=== PATIENT | female | born 1955 | race Caucasian/White ===

== ENCOUNTER → 2017-12-11 | Outpatient (CLI) | payer MEDICAID | LOC: MHCPAIN 08:41 | DX: G89.29 Other chronic pain (principal); M47.817 Spondylosis without myelopathy or radiculopathy, lumbosacral region; M54.16 Radiculopathy, lumbar region; M53.3 Sacrococcygeal disorders, not elsewhere classified; M96.1 Postlaminectomy syndrome, not elsewhere classified | CPT/HCPCS: G0463 ==

== ENCOUNTER 2023-06-04 16:45 | Inpatient (IN) | payer MEDICAID ==
[~2023-06-04] VITALS: Ht 162.6 cm; Wt 44.2 kg
[2023-06-05] MEDS ORDERED: LIPITOR 40MG TA40 MG PO (10:44)
[2023-06-05] MEDS ORDERED: LIDODERM 5% PATC1 EA TP (10:45)
[2023-06-05] MEDS ORDERED: VIMPAT200 MG PO (10:45)
[2023-06-05] MEDS ORDERED: KEPPRA 500MG500 MG PO (10:46)
[2023-06-05] MEDS ORDERED: RT ALBUTER2.5 MG/0.5 IH (10:47)
[2023-06-05] MEDS ORDERED: ASPIRIN 81M81 MG/TA2 PO (10:48)
[2023-06-05] MEDS ORDERED: FOSAMAX 70MG TA70 MG PO (10:48)
[2023-06-05] MEDS ORDERED: CYMBALTA 60MG60 MG PO (10:49)
[2023-06-05] MEDS ORDERED: FLOVENT 110MCG7.9 GM IH (10:49)
[2023-06-05] MEDS ORDERED: COZAAR 50MG50 MG/TAB PO (10:50)
[2023-06-05] MEDS ORDERED: LASIX 20MG TABL20 MG PO ×2 (10:50→15:20)
[2023-06-05] MEDS ORDERED: NEURONTIN100 MG/CAP PO (10:50)
[2023-06-05] MEDS ORDERED: PRILOSEC 20MG20 MG PO (10:51)
[2023-06-05] MEDS ORDERED: SPIRIVA RE2.5 MCG/Ac IH (10:51)
[2023-06-05] MEDS ORDERED: DESYREL 100MG100 MG PO (10:52)
[2023-06-05] MEDS ORDERED: CYANOCOBAL1000 MCG/M IM (15:17)
[2023-06-05] MEDS ORDERED: COLACE LIQUI10 MG/ML PO (15:18)
[2023-06-05] MEDS ORDERED: LOVENOX 4040 MG/0.4 SQ (15:20)
[2023-06-05] MEDS ORDERED: PREVACID SOLUTA30 M2 PO (15:21)
[2023-06-05 15:23] VITALS: BP 122/66; PULSE 81; TEMP 98.2
[2023-06-05] MEDS ORDERED: ONE-A-DAY WOME0.4 MG PO (15:24)
[2023-06-05] MEDS ORDERED: SENOKOT S 50 MG1 TAB PO (15:24)
--- NOTE | 2023-06-05 16:00 | NUR ---
New pt arrived to unit from [facility] via wheelchair. Pt required CGA to stand w/ gait belt & transfer to bed. Pt is alert to person only. Frequently asking for her dog. Skin check: red, blanchable area to upper spine - looks as if previous open area that has healed. Scab noted to left weber. All other skin is intact. Orientation provided to room/unit - needs to be reviewed w/ the pt again. Pt denies any valuable items that need to be locked in safe. Pt has MCOT device to left chest w/ cell phone device reader at the bedside. Pt placed on specialty (new) bed for pressure ulcer prophylaxis. Call light in her reach. Bed alarm on.
[2023-06-05 17:16] VITALS: BP_SYST 122
[2023-06-05 17:50] VITALS: BP 130/72; PULSE 70; TEMP 99.2
[2023-06-05 19:37] VITALS: BP 122/67; PULSE 76; TEMP 98.8
[2023-06-05 19:39] VITALS: BP_SYST 122
--- NOTE | 2023-06-05 20:00 | NUR ---
PT UABLE TO COMPREHEND SUICIDE SCALE.
--- NOTE | 2023-06-05 20:00 | NUR ---
PT RESTING IN BED. VERY CONFUSED AND IMPULSIVE. TRYING REACH OVER SIDERAIL TO GET HER DOG AISHWARYA TO TAKE OUTSIDE. UNABLE TO REDIRECT. PT CLOSE TO NURSES DESK. REMAINS IN SEIZURE PRECAUTIONS. PT RELATES HAVING 10 BACK PAIN. SEE MAR FOR PAIN MEDS GIVEN. GET DESYRL AT BED TIME. GIVEN EARLY. CALL LIGHT IN REACH. BED ALRM SET.
[2023-06-06 05:22] VITALS: BP 151/77; PULSE 65; TEMP 98.3
[2023-06-06 07:00] VITALS: BP_SYST 151
--- NOTE | 2023-06-06 11:22 | NUR ---
Nurse Specialist met with patient to complete initial intake, however due to some confusion, patient was not able to answer all questions. Patient stated she lives alone in [place], [place] and that her sister, Mala (ph#[phone]) lives nearby. Patient stated she sees Dr. Ron for primary care but did not know where they were located. Patient stated she uses [facility] and that she cannot afford her medications, despite having Medicaid [employer]. Patient stated she uses a front wheeled walker for ambulation. SW asked about Advance Directives and patient didn't know if she had DPOA-HC. SW contacted patient's sister, Mala who confirmed patient lives alone in [place] and that she uses a walker for ambulation. Mala stated she is DPOA-HC and will bring in a copy tomorrow. Mala also advised patient has in home services from an agency in [place], but didn't know the name.
--- NOTE | 2023-06-06 16:05 | NUR ---
Has lack of transportation kept you from medical appts, meetings, work, or from getting things needed for daily living? NO How often do you feel lonely or isolated from those around you? NEVER Over the past 5 days, how much of the time has pain made it hard for you to sleep? RARELY/NOT AT ALL Over the past 5 days, how often have you limited your participation in therapy due to pain? OCCASIONALLY Over the past 5 days, how often have you limited your day-to-day activities because of pain? FREQUENTLY Have you had 2 or more falls in the past year or any fall with an injury? YES Did you have major surgery during the 100 days prior to admission? NO
[2023-06-06 17:21] VITALS: BP 126/78; PULSE 63; TEMP 98.2
[2023-06-06 19:00] VITALS: BP_SYST 126
--- NOTE | 2023-06-06 20:00 | NUR ---
PATIENT WAS AWAKE IN BED UPON SHIFT ASSESSMENT. SHE IS AXO X2 TO SELF AND BIRTHDATE ONLY. SHE IS PLEASANT BUT CONFUSSED TO WHERE SHE IS. SHE DENIES ANY PAIN OR SOA AT THIS TIME. LUNG SOUNDS ARE CLEAR. PATIENT REORIENTED TO TIME AND PLACE. CALL LIGHT WITHIN REACH, BEDALARM ON.
--- NOTE | 2023-06-06 20:55 | NUR ---
CALL PLACED TO HOSPITALIST-RIVER. OLGA EXPERIENCED NAUSEA AND VOMITTING. ENTIRE STOMACH CONTENTS INCLUDING PM MEDS WERE EXPELLED. VSS WERE TAKEN AND BP WAS ELEVATED 186/66. TORB WAS GIVEN FOR AND ADMINISTERED- IV HYDRALAZINE AND ZOFRAN.
--- NOTE | 2023-06-06 22:32 | NUR ---
HOSPITALIST VISITED PATIENT BEDSIDE PATIENT CONTINUES TO EXPERIENCE V/N AND MURCIA. RIVER PALPATED PATIENT'S ABDOMEN AND PATIENT RESPONDED WITH YELLING AND GAURDING AND STATED THAT "IT HURTS". VSS ARE 164/63 BP, 79 PULSE, [address] OF HEAD AND ABDOMEN ORDERED.
[2023-06-06 23:32] LABS: BASO # 0.1 K/mm3 (0.0-0.2); BASO % 1.8 % (0.0-2.0); EOS # 0.1 K/mm3 (0.0-0.7); EOS % 2.6 % (0.0-4.0); GRAN # 2.9 K/mm3 (1.4-6.5); GRAN % 58.7 % (42.2-75.2); HEMOGLOBIN 10.9 g/dl (12.5-16.0); LYMPH # 1.4 K/mm3 (1.2-3.4); LYMPH % 27.9 % (20.0-51.0); MEAN CELL VOLUME 105 fl (80.0-100.0); MEAN CORPUSCULAR HEMOGLOBIN 37 pg (27-31); MEAN CORPUSCULAR HGB CONC 36 g/dl (33.0-37.0); MEAN PLATELET VOLUME 12.4 fl (7.4-10.4); MONO # 0.4 K/mm3 (0.1-0.6); MONO % 8.8 % (1.7-9.3); PLATELET COUNT 254 K/mm3 (130-400); RED BLOOD COUNT 2.92 M/mm3 (4.10-5.30); REDCELL DISTRIBUTION WIDTH-CV 13.1 % (11.5-14.5)
[2023-06-06 23:35] LABS: HEMATOCRIT 30.5 % (37.0-47.0)
--- NOTE | 2023-06-06 23:45 | NUR ---
PATIENT RETURNED FROM CT. BED ALARM ACTIVATED CALL LIGHT WITHIN REACH.
[2023-06-06 23:53] LABS: ALANINE AMINOTRANSFERASE 29 U/L (0-55); ALBUMIN 3.7 gm/dL (3.4-4.8); ALKALINE PHOSPHATASE 109 U/L (40-150); ANION GAP 11 mmol/L (7-16); AST,SGOT 40 U/L (5-34); BILIRUBIN,TOTAL 0.3 mg/dL (0.2-1.2); BLOOD UREA NITROGEN 26 mg/dL (10-20); CARBON DIOXIDE 24 mmol/L (23-31); CHLORIDE 107 mmol/L (98-107); CREATININE, serum 0.67 mg/dL (0.57-1.11); GLUCOSE 120 mg/dL (70-99); POTASSIUM 3.6 mmol/L (3.5-4.5); SODIUM 142 mmol/L (136-145); TOTAL PROTEIN 7.2 gm/dL (6.2-8.1)
[2023-06-07] LABS: TROPONIN-I < 0.010 ng/mL (0.00-0.033)
--- NOTE | 2023-06-07 00:35 | NUR ---
mepiplex placed on bony prominence of lumbar vertebrae d/t scab.
--- NOTE | 2023-06-07 04:32 | NUR ---
RECHECK OF VSS- BP 166/59, 02 100%, 74 PULSE, TEMP 98.2. PATIENT STILL REMAINS AXO X 2. DENIES N/V AND PAIN AT THIS TIME.
[2023-06-07 05:21] VITALS: BP 165/64; PULSE 81; TEMP 98.1
--- NOTE | 2023-06-07 06:03 | NUR ---
OLGA'S BP REMAINS IN 160'S SYSTOLIC. ALL OTHER VSS ARE WNL. SHE NO LONGER COMPLAINS OF MURCIA AND N/V. CT HEAD NORMAL-SEE NOTES. OLGA REMAINS AXO X2 AND WAS REORIENTED TO PLACE AND SITUATION THROUOUGHT THE NIGHT. BED ALARM ON
[2023-06-07 07:02] VITALS: BP_SYST 165
--- NOTE | 2023-06-07 07:03 | NUR ---
Shift report received from night RN. Pt had vomiting episode, MURCIA, & elevated BP overnight. Pt currently awake & lying in left side position in bed. She is alert to person. Denies current abd. pain or nausea. Reports having pain "all over". Will continue to monitor.
--- NOTE | 2023-06-07 08:58 | NUR ---
Pt up in recliner to work w/ OT/PT.
--- NOTE | 2023-06-07 10:25 | NUR ---
Pt off unit for Group Therapy.
[2023-06-07 13:47] VITALS: BP 162/78
--- NOTE | 2023-06-07 13:48 | NUR ---
Pt lying supine in bed. Sister here to bring belongings. Scheduled gabapentin given. Pt denies other needs at this time. Call light in reach. Bed alarm on.
--- NOTE | 2023-06-07 15:22 | NUR ---
Pt resting supine in bed. Rates pain "all over" at 10/10. Tylenol given per PRN order.
--- NOTE | 2023-06-07 16:43 | NUR ---
Pt up to ambulate in hallway w/ RN. Pt wanting to walk her dog, Janessa, & smoke a cigarette. Pt re-oriented to time/place. Pt unable to recall how long she has been on IPR unit. Pt reminded that hospital has no smoking policy. Pt back in bed at her request. Other needs denied. Call light in her reach. Bed alarm is on.
[2023-06-07 16:57] VITALS: BP 158/78; BP 175/77; PULSE 65; TEMP 98
--- NOTE | 2023-06-07 18:30 | NUR ---
Pt laying supine in bed moaning. Pt reporting that she hurts all over & rates pain level at 10/10. Oxycodone given per PRN order. Pt also shouting "evita!". When pt asked who she is looking for pt stated "you don't hear that mute?" Pt reminded that she is on IPR unit at [address]. Pt settled into bed. Denies other needs. Call light in her reach. Bed alarm is on.
[2023-06-07 19:00] VITALS: BP_SYST 158
--- NOTE | 2023-06-07 20:00 | NUR ---
UPON SHIFT ASSESSMENT, OLGA WAS SLEEPING SOUNDLY. SHE STILL REAMAINS AXO X1 BUT C/O OF NO MURCIA, N/V AND SOA. VSS ARE WNL WITH BP SLIGHTLY ELEVATED AT 156 SYSTOLIC. BED ALARM ON.
--- NOTE | 2023-06-08 01:45 | NUR ---
OLGA HAD AN EPISODE OF INCONTINENCE-URINE. LINEN CHANGED.
[2023-06-08 05:28] VITALS: BP 132/73; PULSE 88; TEMP 99.5
--- NOTE | 2023-06-08 05:41 | NUR ---
OLGA HAD 3 OCCURENCES OF URINE INCONTINENCE THROUGHOUT THE NIGHT. SHE SLEPT THROUGH MOST OF THE NIGHT AND DENIES ANY PAIN. SHE STILL REMAINS AXO X1. VSS WNL. CALL LIGHT WITHIN REACH. BED ALARM ON.
[2023-06-08 07:17] VITALS: BP_SYST 132
--- NOTE | 2023-06-08 07:17 | NUR ---
Shift report received from night RN. No events reported overnight. Pt sleeping in right side lying position w/ even & unlabored resps. Call light in reach. Bed alarm on.
--- NOTE | 2023-06-08 07:55 | NUR ---
Pt sitting up in bed eating breakfast independently. Pt reports sleeping ok overnight. Reports pain "all over" at 9/10. Tylenol given per PRN order. Other needs denied. Call light in reach. Bed alarm on.
--- NOTE | 2023-06-08 10:04 | NUR ---
Pt sleeping in left side lying position in bed. Resps are even & unlabored. Call light in reach. Bed alarm is on.
--- NOTE | 2023-06-08 11:59 | NUR ---
Set up help provided for lunch. Pt feeding herself. Supervision provided. Pt reporting pain "all over" at 04/01. Oxycodone given per PRN order.
--- NOTE | 2023-06-08 14:57 | NUR ---
Pt sleeping in R side lying position in bed. Resps are even & unlabored. Call light in her reach. Bed alarm is on.
--- NOTE | 2023-06-08 15:58 | NUR ---
Pt supervised as she stood from bed to rolling walker & ambulated to the bathroom where she had a continent void. Pt sitting up in the recliner w/ BLE elevated on footrest. Pt reoriented to location ([facility] unit, [place], [place]) after pt asking where she is three times. Pt unable to recall the events that led to her hospitalization. Pt denies any needs at this time. Call light in her reach. Chair alarm is on.
[2023-06-08 17:08] VITALS: BP 158/73; PULSE 70; TEMP 97.7
--- NOTE | 2023-06-08 18:11 | NUR ---
Pt sitting up in the recliner watching tv. Pt stated "I'm alright" when asked if she was having any pain & denied the need for pain medication at this time. Pt denies other needs. Call light in her reach. Chair alarm is on.
[2023-06-08 18:59] VITALS: BP_SYST 158
--- NOTE | 2023-06-08 19:00 | NUR ---
RECEIVED CHANGE OF SHIFT REPORT FROM DAY SHIFT RN.
--- NOTE | 2023-06-08 20:12 | NUR ---
UP IN CHAIR DURING REPORT. DENIED ANY NEEDS AT TIME OF REPORT. CONTINUES TO BE UP IN CHAIR AT THIS TIME. EXIT ALARM ON, CALL LIGHT IN REACH.
--- NOTE | 2023-06-08 20:45 | NUR ---
DENIES ANY NEEDS OR CONCERNS AT THIS TIME. TO BED FROM CHAIR, GAIT STEADY BUT WEAK. PATIENT COOPERATIVE. EXIT ALARM ON WHEN IN BED, WITH CALL LIGHT IN REACH.
--- NOTE | 2023-06-09 03:07 | NUR ---
Patient resting with eyes closed, breathing nonlabored and even. Does not wake during nursing rounds. Exit alarm on, call light in reach.
[2023-06-09 06:08] VITALS: BP 168/71; PULSE 70; TEMP 98.2
[2023-06-09 07:00] VITALS: BP_SYST 168
--- NOTE | 2023-06-09 07:36 | NUR ---
Change of shift report given to day shift RNTiffani.
--- NOTE | 2023-06-09 08:00 | NUR ---
Pt alert to self, responses are not appropriate to questions asked.Pt re oriented to time and place, also written on the board. VSS, Shift assessment complete. Denies pain at this time, medicated per emar. Call light within reach, bed alarm set and is able to turn self side to side in bed. Has had int. incontinence. Denies further needs at this time.
--- NOTE | 2023-06-09 08:58 | NUR ---
cement and concrete plant worker contacted [facility] to determine if patient has home health services through them as patient is unable to remember the name. [facility] confirmed patient receives home health services through them. [facility] was able to provide patient's PCP information, whom is Dr. Morgan Mac through the [facility]. PCP P# [phone] F# [phone]. [facility] Fax is [phone]. SW faxed clinical updates to [facility].
--- NOTE | 2023-06-09 09:53 | NUR ---
RECIEVED REPORT FROM PERSONALIZATION SPECIALIST RN.
--- NOTE | 2023-06-09 12:31 | NUR ---
Admission QIM scores were reviewed by the team. Code of 4 chosen for toileting hygiene was determined by team discussion to be the most usual performance for this patient during the discharge assessment period. Code of 4 chosen for toilet transfers was determined by team discussion to be the most usual performance for this patient during the discharge assessment period. Code of 4 chosen for rolling left to right was determined by team discussion to be the most usual performance before interventions for this patient during the assessment period. Code of 4 chosen for sit to lying was determined by team discussion to be the most usual performance before interventions for this patient during the assessment period. Code of 3 chosen for lying to sitting side of bed was determined by team discussion to be the most usual performance before interventions for this patient during the assessment period. Code of 4 chosen for sit to stand was determined by team discussion to be the most usual performance for this patient during the discharge assessment period. Code of 4 chosen for chair/bed to chair transfer was determined by team discussion to be the most usual performance before interventions for this patient during the assessment period. Code of 4 chosen for walking 10 feet was determined by team discussion to be the most usual performance for this patient during the discharge assessment period.--Elaine Oritz,
[2023-06-09 17:13] VITALS: BP 145/77; PULSE 81; TEMP 98.5
[2023-06-09 19:10] VITALS: BP_SYST 145
--- NOTE | 2023-06-09 19:10 | NUR ---
RECEIVED CHANGE OF SHIFT REPORT FROM DAY SHIFT NURSE. PATIENT SLEEPING, DOES NOT WAKE DURING REPORT. BREATHING OBSERVED EVEN AND NONLABORED. BED EXIT ALARM ON, CALL LIGHT IN REACH.
[2023-06-10] VITALS (7 sets, daily range): BP systolic 105–162; BP diastolic 52–79; PULSE 64–93; TEMP 97.9–98.6
--- NOTE | 2023-06-10 02:39 | NUR ---
PATIENT RESTING IN BED, CURRENTLY HAS EYES CLOSED BUT HAS BEEN WAKING FOR SHORT PERIODS OF TIME ASKING WHERE SHE IS AT AND WHY SHE IS HERE. BREATHING NONLABORED AND EVEN. EXIT ALARM ON, CALL LIGHT IN REACH.
--- NOTE | 2023-06-10 07:06 | NUR ---
RECIEVED REPORT FROM BRISSA MARIE.
--- NOTE | 2023-06-10 07:07 | NUR ---
Change of shift report given to day shift nurseTiffani.
--- NOTE | 2023-06-10 10:52 | NUR ---
Pt alert and oriented to self. Has to be reoriented often. Not much of an appetite this morning but does manage the ensure supplement ok. VSS, shift assessment complete, medicated per emar, denies painat this time. Transfers with one person assist and FWW.Does turn independantly. Family called to check on her, they live a long distance away. Has intermittent incontinence. Call light within reach bed alarm set.
--- NOTE | 2023-06-10 15:28 | NUR ---
garbage pick up worker faxed clinical updates to [facility].
--- NOTE | 2023-06-10 19:00 | NUR ---
RECEIVED CHANGE OF SHIFT REPORT FROM DAY SHIFT NURSE. PATIENT IN BED, EXIT ALARM ON, CALL LIGHT IN REACH.
--- NOTE | 2023-06-10 19:20 | NUR ---
PATIENT C/O HEADACHE, VS CHECKED OBSERVED SBP >160, SEE MAR FOR PRN MED FOR ELEVATED SBP.
--- NOTE | 2023-06-10 22:20 | NUR ---
Patient awake, wanting to have staff lay in bed with her, also asking for "Judy" "someone I've been with". Speech is clear but patient oriented only to self. At c/o headache, see MAR for pain meds given earlier. Observed patient less restless with staff in room and observed breathing even and nonlabored, resting with eyes closed. Exit alarm on, call light in reach while in bed.
--- NOTE | 2023-06-11 05:21 | NUR ---
PATIENT UP TO BATHROOM, OBSERVED NO RESTLESS AWAKE BEHAVIOR THIS SHIFT ONCE PATIENT WAS RESTING WITH HER EYES CLOSED AND OBSERVED BREATHING EVEN AND NONLABORED. PATIENT DENIES C/O HEADACHE PAIN BEFORE. NO INCONTINENCE OF URINE OR STOOL OBSERVED AT THIS TIME.
[2023-06-11 05:27] VITALS: BP 147/65; PULSE 70; TEMP 98.9
[2023-06-11 07:00] VITALS: BP_SYST 147
--- NOTE | 2023-06-11 07:21 | NUR ---
RECIEVED REPORT FROM BRISSA MARIE.
--- NOTE | 2023-06-11 07:35 | NUR ---
Change of shift report given to day shift nurse. Patient resting in bed, exit alarm on, call light in reach.
--- NOTE | 2023-06-11 12:57 | NUR ---
Initial visit; Patient thanked Quality Assurance Calibrator thanked for stopping by and for wishing her a Happy Holiday and God's blessings.
--- NOTE | 2023-06-11 14:07 | NUR ---
general distillery worker faxed clinical updates to [facility]. Discharge Plan: HOme with [facility]
--- NOTE | 2023-06-11 16:37 | NUR ---
die out worker met with the team to discuss patient's progress and discharge planning. Patient has made a little progress but may need fci care services after rehab. The IPR team would like to continue to work with patient and re-evaluate next week if LTC is needed. Sw met with patient to discuss IPR team meeting notes and provided a copy of the notes to the patient. Patient would like to go home as soon as possible. SW explained they would re-evaluate her next week to see if she is ready to return home at that time. Patient requested SW contact her sister. SW contacted patient's sister, Mala. Mala expressed she believes based on what she saw from Vilma's progress during her last visit, she believes she may benefit from LTC after rehab. CHRISTIANO explained the team would like to continue to evaluate her but they would also like to have a family meeting to discuss concerns. CHRISTIANO scheduled a family meeting on 06/17/23 at 1 pm. CHRISTIANO provided this date to Elaien IPR director.
[2023-06-11 17:30] VITALS: BP 109/52; PULSE 74; TEMP 97.8
--- NOTE | 2023-06-11 18:18 | NUR ---
Pt alert and oriented X1, constant re orienting to time and place. She will yell from her room for "evita" or others that staff dont recognize. She asks about her pets and wants to know where they are. When reoriented about why she is here its almost like were telling her for the first time. Shift assessment complete,see documentation. VSS. Medicated per emar. Denies need for anything further. Call light within reach, bed alarm set.
[2023-06-12 05:36] VITALS: BP 164/77; PULSE 73; TEMP 98.7
[2023-06-12 07:11] VITALS: BP 137/55
[2023-06-12 07:16] VITALS: BP_SYST 137
--- NOTE | 2023-06-12 07:16 | NUR ---
Shift report received from night RN. Pt sleeping supine in bed w/ even & unlabored resps. Call light in reach. Bed alarm on.
--- NOTE | 2023-06-12 10:18 | NUR ---
Pt reporting RUQ abd pain w/ guarding. Zofran was given approx 2.5 hrs ago. Discussed w/ Dr. Colin. Magic Mouthwash given. Labs ordered. Pt off unit for Group Therapy.
--- NOTE | 2023-06-12 12:01 | NUR ---
Pt back in her room after working w/ PT. Pt sitting up in the recliner to eat lunch. Pt reporting continued abd pain w/o nausea. UA obtained & sent to the lab. Other labs are pending lab draw. Pt given low dose oxycodone per PRN order. Other needs denied. Call light in her reach. Chair alarm is on.
[2023-06-12 12:08] LABS: COLLECTION METHOD CLEAN CATCH
[2023-06-12 12:13] LABS: PH 5.5 (5.0-8.5); URINE APPEARANCE Clear (CLEAR/HAZY); URINE COLOR Yellow (YELLOW); URINE GLUCOSE Negative (NEGATIVE); URINE KETONE Negative (NEGATIVE); URINE PROTEIN(semi-quant) Negative (NEGATIVE); URINE UROBILINOGEN 0.2 E.U/dL (0.2-1.0)
[2023-06-12 12:14] LABS: URINE BLOOD Negative (NEGATIVE); URINE NITRATE Negative (NEGATIVE)
[2023-06-12 12:21] LABS: URINE RBC None Seen /hpf (0-2)
[2023-06-12 12:28] LABS: BASO # 0.1 K/mm3 (0.0-0.2); BASO % 1.3 % (0.0-2.0); EOS # 0.1 K/mm3 (0.0-0.7); GRAN # 3.6 K/mm3 (1.4-6.5); GRAN % 59.7 % (42.2-75.2); HEMOGLOBIN 12.2 g/dl (12.5-16.0); LYMPH # 1.7 K/mm3 (1.2-3.4); MEAN CELL VOLUME 104 fl (80.0-100.0); MEAN CORPUSCULAR HEMOGLOBIN 37 pg (27-31); MEAN CORPUSCULAR HGB CONC 35 g/dl (33.0-37.0); MEAN PLATELET VOLUME 12.2 fl (7.4-10.4); MONO # 0.6 K/mm3 (0.1-0.6); MONO % 9.8 % (1.7-9.3); PLATELET COUNT 242 K/mm3 (130-400); RED BLOOD COUNT 3.32 M/mm3 (4.10-5.30); REDCELL DISTRIBUTION WIDTH-CV 12.2 % (11.5-14.5)
[2023-06-12 12:29] LABS: HEMATOCRIT 34.6 % (37.0-47.0)
[2023-06-12 12:39] LABS: ALBUMIN 4.3 gm/dL (3.4-4.8); BILIRUBIN,TOTAL 0.4 mg/dL (0.2-1.2); CALCIUM 10.1 mg/dL (8.4-10.2); CREATININE, serum 0.77 mg/dL (0.57-1.11); POTASSIUM 3.9 mmol/L (3.5-4.5); TOTAL PROTEIN 7.6 gm/dL (6.2-8.1)
--- NOTE | 2023-06-12 12:48 | NUR ---
Pt assisted to bed by PT. Denies any other needs at this time. Call light in her reach. Bed alarm is on.
--- NOTE | 2023-06-12 13:55 | NUR ---
Pt sleeping supine in bed w/ even & unlabored resps. Pt aroused easily from sleep. Scheduled pain med given. Pt denies other needs. Call light in reach. Bed alarm on.
--- NOTE | 2023-06-12 15:20 | NUR ---
Pt awake after taking nap. Pt asking where she is - discussed current location w/ pt. Pt reporting pain "all over" at 04/01. Tylenol given per PRN order. Too early for Oxycodone. Pt denies other needs at this time. Call light in her reach. Bed alarm on.
[2023-06-12 16:26] VITALS: BP 103/55; PULSE 64; TEMP 98.1
--- NOTE | 2023-06-12 16:50 | NUR ---
Pt resting supine in bed reporting pain "all over" at 10/10. Oxycodone given per PRN order.
[2023-06-12 18:47] VITALS: BP_SYST 103
--- NOTE | 2023-06-12 20:00 | NUR ---
PT SLEEPING. NO DISTRESS.
--- NOTE | 2023-06-12 21:00 | NUR ---
PT AWAKE. BED ALARM SOUNDING. PT TRYING TO GET OUT OF BED. ASSISTED TO BATHROOM. CHANGED BRIEF. PT CONFUSED TO PERSON PLACE AND TIME. KEEPS ASKING ABOUT HER ANIMALS. BACK TO BED. HS MEDS CRUSHED TAKEN WITH APPLESAUCE. CALL LIGHTIN REACH. BED ALARM SET.
[2023-06-13 05:42] VITALS: BP 116/64; PULSE 70; TEMP 98.1
[2023-06-13 07:33] VITALS: BP_SYST 116
--- NOTE | 2023-06-13 07:34 | NUR ---
Shift report received from night RN. No events reported overnight. Pt sitting up in bed to eat breakfast. Call light in reach. Bed alarm on.
--- NOTE | 2023-06-13 07:55 | NUR ---
Patient complains of nausea and stomach pain, prn proveded.
--- NOTE | 2023-06-13 08:42 | NUR ---
Pt sitting up in bed eating breakfast independently. Pt reporting pain "all over" at 10/10. Oxycodone given per PRN order. Pt reports no improvement w/ abd pain after taking Zofran & Magic Mouthwash approx 1 hr ago. No nausea. Will continue to monitor. Pt has her call light in reach. Bed alarm on.
--- NOTE | 2023-06-13 09:25 | NUR ---
Pt off unit w/ PT.
--- NOTE | 2023-06-13 10:25 | NUR ---
Pt sitting in her recliner after working w/ PT. Pt reporting pain level at 10/10 "all over". Too soon for oxycodone. Tylenol given per PRN order.
--- NOTE | 2023-06-13 14:47 | NUR ---
Pt sitting up in bed watching tv. Pt asking for her dog "Violet". Informed pt that her dog is not here at the hospital w/ her. OT reporting urinary frequency during their session. Dr. Coiln notified. Pt reporting pain at 04/01. Too soon for oxycodone. Tylenol given per PRN order.
[2023-06-13 16:55] LABS: COLLECTION METHOD CATHETER
[2023-06-13 17:02] VITALS: BP 123/53; PULSE 61; TEMP 97.7
--- NOTE | 2023-06-13 17:10 | NUR ---
hollow handle bench worker met with patient to check in prior to the weekend. Patient stated she was doing well but ready to go home. SW expressed the team feels she needs to continue to make progress before being able to safely return home and her sister feels the same. SW explained she had called her sister as she asked her to do on Friday. Patient appeared confused and stated that she had not met the social media community manager. SW expressed they had been working together this week and she would follow up with her next week. Patient stated okay.
[2023-06-13 17:24] LABS: PH 5.5 (5.0-8.5); URINE APPEARANCE Cloudy (CLEAR/HAZY); URINE BLOOD Negative (NEGATIVE); URINE COLOR Yellow (YELLOW); URINE GLUCOSE Negative (NEGATIVE); URINE KETONE Negative (NEGATIVE); URINE NITRATE Negative (NEGATIVE); URINE PROTEIN(semi-quant) Negative (NEGATIVE); URINE UROBILINOGEN 0.2 E.U/dL (0.2-1.0)
[2023-06-13 17:25] LABS: SQUAMOUS EPITHELIAL >50 /hpf (0-10); URINE BACTERIA Moderate /hpf (NONE SEEN); URINE RBC 0-2 /hpf (0-2)
--- NOTE | 2023-06-13 18:12 | NUR ---
Pt up to recliner for dinner then to bed at her request. Pt moaning & reporting pain "all over" at 04/01. Oxycodone given per PRN order. Call light in her reach. Bed alarm on.
[2023-06-13 18:58] VITALS: BP_SYST 123
--- NOTE | 2023-06-13 20:30 | NUR ---
PT RESTING IN BED. SEIZURE PRECAUTIONS STILL IN PLACE. NO SEIZURE ACTIVITY SINCE ADMISSION. PT REMAINS VERY CONFUSED AND IMPULSIVE. CONTINUALLY C/O BACK PAIN. DENIES ABD PAIN OR NAUSEA. CALL LIGHT IN REACH. BED ALARM SET.
[2023-06-14 05:57] VITALS: BP 130/78; PULSE 76; TEMP 98.5
[2023-06-14 07:18] VITALS: BP_SYST 130
--- NOTE | 2023-06-14 09:17 | NUR ---
Patient alert to self only this morning, required re-orientation to situation/location/and day. Complains of pain to rib, new lidocaine patch applied. Redness noted to bottom, area blanching. Patient assisted in re-positioning. Tolerating food and fluids well. Medications administered with applesauce and water. Patient currently in bed with call light in reach and fall precautions in place.
--- NOTE | 2023-06-14 11:12 | NUR ---
Patient returned from group therapy complaining of pain. PRN Roxicodone administered with apple sauce. Patient still requiring re-orientation to situation and place. Directly after swallowing pain pill, patient asked for one and forgot she just took it. Patient resting in bed with call light in reach and fall precautions in place.
--- NOTE | 2023-06-14 14:55 | NUR ---
Patient rested for a while comfortably, after lunch patient began groaning and yelling for help. Complains of rib pain, PRN Tylenol administered and patient repositioned. Patient tolerating transfers well. Still requiring re-orientation to place and situation often. Patient currently in bed with call light in reach and bed alarm on. No groaning or yelling noted at this time.
--- NOTE | 2023-06-14 17:24 | NUR ---
Patient had increased restlessness due to wanting to smoke a cigarette. Patient kept trying to get out of bed so that she could walk outside and smoke. Orders obtained for nicotine patch and administered to right upper arm. Patient continues to require re-orientation to location, time, and situation. Patient seems to think she is in senior living, forgets that she has been here for a few days and thought that her sister brought her here today for the first time. PRN Oxycodone administered due to increase in rib pain again. Patient continues to ambulate to bathroom x1 assist with walker, no incontinence noted. Fall precautions in place, all needs met at this time.
[2023-06-14 17:43] VITALS: BP 100/53; PULSE 70; TEMP 99.4
[2023-06-14 18:30] VITALS: BP_SYST 100
--- NOTE | 2023-06-14 22:13 | NUR ---
PT AWAKE AND MOANING. BED ALARM SOUNDING. PT SIDEWAYS IN BED, TRYING TO GRAB HER GLASSES THAT FELL ON THE FLOOR. ASSISTED BACK UP TO SUPINE POSITION. PT C/O BACK PAIN. HAD PAIN MED EARLIER. PT STILL MOANING NOW SHE IS COLD. BLANKETS PLACED BACK OVER HER. GOT WARM BLANKET FOR PT. BED ALARM KEEPS SOUNDING. PT KEEPS MOVING TO RT SIDE OF THE BED SETTING OFF ALARM. MOVED PT TO CENTER OF BED. BUT KEEPS MOVING BACK- SETTING ALARM. GAVE TYLENOL FOR BACK PAIN. CALL IGHT IN REACH. BED ALARM SET ON SENSITIVE SETTING. PT IMPULSIVE AND CONFUSED.
[2023-06-14 22:15] VITALS: TEMP 98.8
[2023-06-15 05:40] VITALS: BP 130/66; PULSE 73; TEMP 98.4
[2023-06-15 06:56] VITALS: BP_SYST 130
--- NOTE | 2023-06-15 06:56 | NUR ---
Shift report received from night RN. No events reported overnight. Pt sleeping supine in bed w/ even & unlabored resps. Call light in reach. Bed alarm on.
--- NOTE | 2023-06-15 10:58 | NUR ---
Pt off unit Group Therapy.
--- NOTE | 2023-06-15 11:50 | NUR ---
Pt back in her room after Group Therapy. Pt reporting pain "all over" & rates pain at 10/10. Oxycodone given per PRN order. Pt up in recliner. Call light in reach. Chair alarm on.
--- NOTE | 2023-06-15 13:08 | NUR ---
Pt resting supine in bed. Pt reporting back pain at 10/10. Tylenol given per PRN order. Scheduled gabapentin given. Will continue to monitor.
--- NOTE | 2023-06-15 15:09 | NUR ---
Order received for K-pad. K-pad applied to pt's back to help w/ pain control.
--- NOTE | 2023-06-15 16:57 | NUR ---
Pt in left side position in bed, moaning that her back is hurting. Oxycodone given per PRN order approx 20 minutes ago. K-pad adjusted on pt's back. Will continue to monitor.
[2023-06-15 17:29] VITALS: BP 98/56; PULSE 71; TEMP 9
--- NOTE | 2023-06-15 17:38 | NUR ---
Pt sitting up in bed eating dinner w/ intermittent feeding by RN & intermittent independent eating. Pt no longer moaning in pain. Pt has her call light in reach. Bed alarm is on.
[2023-06-15 18:30] VITALS: BP_SYST 98
[2023-06-15 18:58] VITALS: TEMP 99
--- NOTE | 2023-06-15 20:30 | NUR ---
PT RESTING IN BED. PT REMAINS CONFUSED AND IMPULSIVE. PT MOANING CONTINUOUSLY. C/O BACK PAIN. ASSISTED TO BR CGA W/WALKER. VOIDED. BACK TO BED. C/O STOMACH PAINS. SEE MAR FOR OXYCODONE ANS MAGIC MOUTHWASH. KPAD INUSE TO BACK AREA. CALL LIGHT IN REACH. BED ALARM SET.
--- NOTE | 2023-06-16 04:34 | NUR ---
PT HAS SLEPT THROUGH THE NIGHT NO DISTRESS. BED ALARM REMAINS ON. CALL LIGHT IN REACH. UNEVENTFUL NIGHT.
[2023-06-16 06:04] VITALS: BP 106/61; PULSE 64; TEMP 98
[2023-06-16 07:14] VITALS: BP_SYST 106
--- NOTE | 2023-06-16 07:14 | NUR ---
Shift report received from night RN. Pt awake in bed, lying supine, moaning in pain. No events overnight.
--- NOTE | 2023-06-16 07:16 | NUR ---
Pt given Oxycodone per PRN order approx 1 hr ago. Will continue to monitor.
--- NOTE | 2023-06-16 08:19 | NUR ---
Pt moaning in pain & asking why her back hurts so much. Scheduled medications given. Lidocaine patch placed to low back as ordered. Pt repositioned to left side lying position. K-pad placed on back. Will continue to monitor. Call light in reach. Bed alarm on.
--- NOTE | 2023-06-16 10:37 | NUR ---
Pt yelling out "Pushpa" & "where am I?". Pt informed that Pushpa is not here at this time & pt reminded that she is at the hospital in [place], [place]. Pt wanting to know how she got here & how long she has been here. Discussed admitting dx w/ pt. Pt requesting pain medication for back pain. Tylenol given per PRN order.
--- NOTE | 2023-06-16 11:44 | NUR ---
Pt gestured for nurse to come to her room. Pt asked "Do you want to go down with me?" When asked "where", pt stated "to go smoke a cigarette". Pt reminded this is a tobacco free hospital & that she is wearing a nicotine patch. Pt on the phone to call her sister to ask for her cigarettes.
--- NOTE | 2023-06-16 12:05 | NUR ---
Pt up to the bathroom w/ rolling walker. Pt wanting to go outside to smoke a cigarette. Reminded pt of non-smoking policy. Pt repositioned to recliner for lunch.
--- NOTE | 2023-06-16 12:25 | NUR ---
Pt aggressive w/ BRICK GRADER & attempting to get out of recliner w/o assistance or w/o her walker. Pt wanting to go smoke. Hospitalist informed. IV site was dc'd by previous nurse. IV meds to be changed to PO. See EMAR for changes.
--- NOTE | 2023-06-16 14:47 | NUR ---
Pt quietly lying supine in bed watching tv. Call light in her reach. Bed alarm is on.
--- NOTE | 2023-06-16 15:54 | NUR ---
Pt lying supine in bed watching tv. Nurse in room to give scheduled medication. Pt reporting that her back hurts. Tylenol given per PRN order. K-pad on back. Pt denies other needs. Call light in reach. Bed alarm on.
--- NOTE | 2023-06-16 16:31 | NUR ---
Pt sleeping in R side lying position. Resps are even & unlabored. Call light in reach. Bed alarm on.
[2023-06-16 16:52] VITALS: BP 91/41; PULSE 80; TEMP 98.2
[2023-06-16 19:38] VITALS: BP_SYST 91
--- NOTE | 2023-06-16 19:39 | NUR ---
Received change of shift report from day shift nurse. Patient resting in bed, exit alarm on, call light in reach.
--- NOTE | 2023-06-17 02:11 | NUR ---
Patient resting with eyes closed, breathing nonlabored and even. Did not wake during nursing rounds. Exit alarm on, call light in reach.
[2023-06-17 05:53] VITALS: BP 132/67; PULSE 84; TEMP 97.4
[2023-06-17 07:00] VITALS: BP_SYST 132
--- NOTE | 2023-06-17 07:19 | NUR ---
Change of shift report given to day shift nurseAlexandra. Patient in bed, exit alarm on, call light in reach.
--- NOTE | 2023-06-17 07:45 | NUR ---
PT LAYING ON SIDE HOLDING ABDOMEN AND MOANING UPON THIS NURSE ENTERING. PT REPORTS HAVING 10/10 ABDOMINAL BACK AT THIS TIME. PT GIVEN PRN PAIN MED PER ORDER AND LIDOCAINE PATCH APPLIED TO LEFT SIDE/ABDOMEN WHERE PT POINTED TO THE PAINFUL AREA. PT HAS A KPAD ON HER LOWER BACK. NICOTINE PATCH TO LEFT SHOULDER AND A MCOT DEVICE TO LEFT CHEST. PT ORIENTED TO SELF ONLY AT THIS TIME. BED IN LOWEST POSITION, CALL LIGHT IN REACH, BED ALARM ON. SEIZURE PRECAUTIONS IN PLACE.
--- NOTE | 2023-06-17 10:12 | NUR ---
PTS MCOT MONITOR PHONE HAS A CRITICAL LOW BATTERY NOTIFICATION, COLD STORAGE SUPERVISOR AT BEDSIDE. YISSEL, CARDIOLOGY CALLED AND ASKED IF IT WOULD BE OKAY TO REMOVE DEVICE FROM PTS CHEST TO CHARGE. YISSEL STATED THAT THIS WOULD BE OKAY. PT UPDATED
--- NOTE | 2023-06-17 10:45 | NUR ---
PT REPORTING 10/10 LOWER BAKC PAIN. PT UNABLE TO GET PRN AT THIS TIME AND GIVEN PRN TYLENOL. PT HAS KPAD ON LOWER BACK AT THIS TIME
--- NOTE | 2023-06-17 11:18 | NUR ---
PTS FAMILY CALLED AND NOTIFIED THIS NURSE THAT DUE TO WEATHER THEY ARENT GOING TO BE ABLE TO MAKE THE SCHEDULED APPT TODAY AT 1300. ATTEMPTED TO CALL MARY CURTIS DIRECTOR WITH ON ANSWER. WILL ATTEMPT TO CALL AGAIN LATER
--- NOTE | 2023-06-17 12:00 | NUR ---
MADISON FROM SOCIAL WORK CALLED AND NOTIFIED THAT PTS FAMILY TOLD THIS NURSE THAT THEY WONT BE ABLE TO MAKE IT TO THE HOSPITAL TODAY FOR THE MEETING AT 1300 DUE TO WEATHER. SOCIAL WORK NOTIFIED THIS NURSE THAT MEETING WILL BE DONE VIA PHONECALL.
[2023-06-17 16:43] VITALS: BP 121/57; PULSE 63; TEMP 98.4
--- NOTE | 2023-06-17 17:22 | NUR ---
composition siding worker met with patient and IPR team for the family meeting. Patient's sister, Mala was present via telephone. Patient will need LTC upon discharge from [facility]. Patient currently believes she is in [place], [place]. Patient would like to go to the [facility] as her first choice. Patient's family provided three other choices if [facility] is unable to accept, [facility] in [place], [facility] in [place] and [facility] in [place]. CHRISTIANO faxed referrals to all four facilities listed above. CHRISTIANO received a fax from Mala for a declaration for the patient. CHRISTIANO contacted Mala and explained that documentation does not state a DPOA-HC which is what they believed it was. CHRISTIANO explained it was her medical wishes but it did not appoint an agent. Mala and Artie (Mala's ) understood. Discharge Plan: LTC
--- NOTE | 2023-06-17 17:49 | NUR ---
NICOTINE PATCH REMOVED FROM LEFT UPPER BACK AND NEW PATCH PLACED TO RIGHT UPPER BACK. PT ASKING TO SMOKE A CIGARETTE MULTIPLE TIMES DURING THIS SHIFT. PT EDUCATED ON NICOTINE PATCH, STAYING ON THE FLOOR, AND SMOKING POLICIES. PT REORIENTED AND THEN VERBALIZED UNDERSTANDING ABOUT SMOKING POLICIES. BED IN LOWEST POSITION, CALL LIGHT IN REACH, BED ALARM ON
--- NOTE | 2023-06-17 18:50 | NUR ---
resting in bed with lights off and TV on, bedside shift report received from CYNTHIA Morris
[2023-06-17 19:27] VITALS: BP_SYST 121
--- NOTE | 2023-06-17 20:00 | NUR ---
dozing at intervals, full assessment completed, see interventions for further info, she is oriented only to self, she believes she is in senior care and also asking about her dog, attempted to reorient her but unsuccessful she continues to talk aboaut being in senior care, takes meds without difficulty
--- NOTE | 2023-06-17 21:28 | NUR ---
is calling out and asking about her dog, alessandro explained to her that her dog is not here, encouraged her to sleep
--- NOTE | 2023-06-17 21:54 | NUR ---
calling out for the officer, entered the room and she is requesting tylenol for her back and her sleeping pill, medicated with tylenol 650mg po and informed her she had already had the sleeping pill, remains confused to place
--- NOTE | 2023-06-17 22:23 | NUR ---
is heard moaning at the desk, medicated with roxicodone 2.5mg po
--- NOTE | 2023-06-17 23:23 | NUR ---
is quiet now and appears to be sleeping, eyes closed, resp quiet and easy
--- NOTE | 2023-06-18 00:42 | NUR ---
appears to continue to sleep, resp quiet and easy
--- NOTE | 2023-06-18 01:31 | NUR ---
report given to CYNTHIA Liriano
[2023-06-18 05:28] VITALS: BP 149/91; PULSE 54; TEMP 98.4
[2023-06-18 05:43] VITALS: BP 116/68; PULSE 57; TEMP 98.2
[2023-06-18 07:26] VITALS: BP_SYST 116
--- NOTE | 2023-06-18 15:32 | NUR ---
PATIENT ASSESSMENT COMPLETE. PATIENT STILL DOES NOT KNOW WHERE SHE IS. PATIENT COMPLAINS OF PAIN THROUGHOUT THE SHIFT. HAS 2.5MG OXY FOR PAIN AND GETS SCHEDULED GABAPENTIN PAIN MANAGEMENT. ALSO HAS A LIDOCAINE PATCH PLACED ON LOWER BACK. NOTIFIED PROVIDER, THAT PATIENT IS COMPLAING OF PAIN CONSISTENTLY. MD AWARE VSS. APPETITE IS NORMAL. PATIENT SLEEPING IN BED. CALL LIGHT WTHIN REACH. BED ALARM ON/ X3 BEDRAILS UP.
--- NOTE | 2023-06-18 17:41 | NUR ---
dockworker met with IPR team to discuss patient's progress and potential discharge. IPR team agreed patient should discharge to LTC as discussed in the family meeting. CHRISTIANO was notified [facility] would need to speak with the social sciences research scientist tomorrow when the admissions staff return to determine if they would be able to accept. THis is the patient's preference as she is from [place], [place]. SW was notified [facility] in [place] [facility] able to accept patient. SW met with the patient and provided a copy of the IPR team meeting notes. SW reviewed the discharge plan of LTC. Patient did not remember speaking about this yesterday. SW contacted patient's sister, Mala, whom confirmed it is recommended patient discharge to LTC until she is able to live independently again. Discharge Plan: LTC
[2023-06-18 17:47] VITALS: BP 106/64; PULSE 65; TEMP 97.9
[2023-06-18 18:30] VITALS: BP_SYST 106
--- NOTE | 2023-06-18 20:30 | NUR ---
PT RESTING IN BED. CONFUSED AND CAN BE IMPULSIVE. PT MOANING. C/O BACK PAIN. SEE MAR FOR PAIN MED GIVEN. SEIZURE PRECAUTIONS IN PLACE. REPORTED NO SEIZURE ACTIVITY NOTED. CALL LIGTH IN REACH. BED ALARM ON SENSITIVE SETTING.
[2023-06-19 05:22] VITALS: BP 120/69; PULSE 67; TEMP 98.1
--- NOTE | 2023-06-19 07:14 | NUR ---
RECIEVED REPORT FROM NIGHT CYNTHIA OZUNA.
[2023-06-19 07:15] VITALS: BP_SYST 120
--- NOTE | 2023-06-19 08:00 | NUR ---
PT ALERT AND ORIENTED TO SELF. VSS. SHIFT ASSESSMENT COMPLETE, MEDICATED PER EMAR. RATING PAIN 8/10. NOT ABLE TO FOLLLOW COMMANDS AND IS VERY IMPULSIVE. EATING BREAKFAST WELL AND TAKING PO MEDS WHOLE. DENIES NEEDS FOR ANYTHING FURTHER.CALL LIGHT WITHIN REACH, BED ALARM SET.
--- NOTE | 2023-06-19 15:09 | NUR ---
Has lack of transportation kept you from medical appts, meetings, work, or from getting things needed for daily living? no How often do you feel lonely or isolated from those around you? sometimes Over the past 5 days, how much of the time has pain made it hard for you to sleep? rarely/not at all Over the past 5 days, how often have you limited your participation in therapy due to pain? occasionally Over the past 5 days, how often have you limited your day-to-day activities because of pain? frequently
--- NOTE | 2023-06-19 16:50 | NUR ---
die set up worker was notified [facility] unable to accept or decline patient until next week. [facility] expressed they would keep the patient in mind if patient transferred to another facility and they could transfer her from the other facility to them if they were able to accept. CHRISTIANO notified the family of this information and they expressed they would like patient to go to [facility] in [place] to ensure patient was able to go a facility. SW notified [facility]. They expressed they would transport tomorrow afternoon. SW faxed clinical updates to [facility]. SW and RN notified patient of the above information. Patient understood that she would be going to [place] and could possibly transport to [place] [facility] if they can accept. CHRISTIANO notified patient's family. Patient's family had questions about furniture to transport. SW provided agency's contact information to ask what furniture to bring. Discharge Plan: [facility]
[2023-06-19 18:00] VITALS: BP 94/57; PULSE 82; TEMP 97.9
[2023-06-19 19:30] VITALS: BP_SYST 94
--- NOTE | 2023-06-19 19:30 | NUR ---
FOUND PT SITTING CROSS WAYS IN BED WITH BETWEEN BED RAILS. PT TRYING TO REACH SOMETHING. PT CONTINUOUSLY MOANS- C/O INCREASED BACK PAIN. SEE MAR FOR TYLENOL AND HS MEDS GIVEN. KPAD PLACED TO BACK. PT ANGRY AT WINDOW [employer]ASS CUTTER OFF- CALLED HER A NAME. ENC PT TO CALM DOWN. PT APOLOGIZED. REPOSITIONED FOR COMFORT. CALL LIGHT IN REACH. PT REMAINS CONFUSED. REPEATING SAME QUESTIONS OVER AND OVER. CALL LIGHT IN REACH. PT THINKS IT IS A PHONE. WANTS TO CALL 4. BED ALARM SET.
--- NOTE | 2023-06-20 05:10 | NUR ---
PT IMPULSIVE. ALARM SOUNDING. PT GOING TO THE SINK. SHE THOUGHT IS WAS THE BR. ASSIST TO BR. VOIDED. ASKS SAME QUESTIONS REPEATEDLY. BACK TO BED. PT C/O BACK HURTING SO BAD. SEE MAR FOR OXYCODONE GIVEN. CALL LIGHT IN REACH. BED ALARM SET.
[2023-06-20 06:02] VITALS: BP 92/48; PULSE 78; TEMP 78.7
[2023-06-20 07:00] VITALS: BP_SYST 92
[2023-06-20] MEDS ORDERED: NATURE'S BLEND100 M2 PO ×2 (08:13→10:45)
[2023-06-20] MEDS ORDERED: NICODERM C21 MG/PATC TD (08:13)
[2023-06-20] MEDS ORDERED: B-12 500 MCG PO ×2 (08:13→10:45)
[2023-06-20] MEDS ORDERED: DUO-KAPS1 CAP PO ×2 (08:13→10:45)
[2023-06-20] MEDS ORDERED: NEURONTIN300 MG/CAP PO ×2 (08:13→10:46)
[2023-06-20] MEDS ORDERED: ATARAX 25MG25 MG/TAB PO (08:13)
[2023-06-20] MEDS ORDERED: ROXICODONE 55 MG/TAB PO ×2 (08:13→10:46)
--- NOTE | 2023-06-20 12:42 | NUR ---
RECIEVED REPORT FROM FISHER DIVER NET RNLAITH.
--- NOTE | 2023-06-20 12:46 | NUR ---
PT ALERT X1-2. VSS, SHIFT ASSESSMENT COMPLETE. MEDICATED PER EMAR, PAIN RATED 10/10. PT IS A STANDBY ASSIST W/FWW. ATE 100% OF BREAKFAST THIS AM. STILL SHOUTING OUT AT PEOPLE IN THE HALLS AND WANTING TO KNOW WHERE SHE IS ALL THE TIME. SHE TALKS ABOUT BEING IN GROUP HOME AND THINKING SHE IS BACK THERE. COMES TO WHEN RE ORINETED. SHE WILL BE TRANSFERRING TODAY TO [facility]ARE HOME FACILITY. CALL LIGHT WITHIN REACH, BED ALARM SET. DENIES NEED FOR ANYTHING FURTHER.
--- NOTE | 2023-06-20 12:55 | NUR ---
TRANSPORT FROM NURSING FACILITY FOR THE PT TO BE TRANSFERRED TO ARRIVED AT 1235PM. ALL PAPERWORK AND DISCHARGE INSTRUCTIONS INSIDE AND SENT WITH. REPORT CALLED TO ACCEPTING FACILITY AT 1256. PT ESCORTED OFF UNIT WITH ALL BELONGING BY STAFF AT 1246PM.
--- NOTE | 2023-06-20 14:48 | NUR ---
Discharge QIM scores were reviewed by the team. Code of 5 chosen for eating was determined by team discussion to be the most usual performance for this patient during the discharge assessment period. Code of 4 chosen for oral hygiene was determined by team discussion to be the most usual performance for this patient during the discharge assessment period. Code of 6 chosen for toileting hygiene was determined by team discussion to be the most usual performance for this patient during the discharge assessment period. Code of 4 chosen for toilet transfers was determined by team discussion to be the most usual performance for this patient during the discharge assessment period. Code of 4 chosen for sit to stand was determined by team discussion to be the most usual performance for this patient during the discharge assessment period.--Elaine Ortiz,
--- NOTE | 2023-06-20 15:57 | NUR ---
7th grade social studies teacher met with patient to complete care assessment for LTC. CHRISTIANO faxed discharge orders and updates to [facility]. CHRISTIANO received time for [facility] to garbage pick up man patient around 11 am. CHRISTIANO notified unit nurse, nurse, patient and patient's family. CHRISTIANO provided reporting # to current nurse. CHRISTIANO provided the pharmacy information to Dr. Martino whom sent prescription orders to [facility]. CHRISTIANO Lamar assisted CHRISTIANO with uploading Care Assessment. Discharge Plan: LTC
== END 2023-06-20 12:46 | DRG 101 ==
PROVIDERS: Nurse Practitioner Family; ADMIT Physical Medicine & Rehabilitation Sports Medicine
DX: G40.901 Epilepsy, unspecified, not intractable, with status epilepticus (principal); G93.40 Encephalopathy, unspecified; E44.0 Moderate protein-calorie malnutrition; Z68.1 Body mass index [BMI] 19.9 or less, adult; N39.0 Urinary tract infection, site not specified; R26.89 Other abnormalities of gait and mobility; R41.89 Other symptoms and signs involving cognitive functions and awareness; M81.0 Age-related osteoporosis without current pathological fracture; K21.9 Gastro-esophageal reflux disease without esophagitis; J44.9 Chronic obstructive pulmonary disease, unspecified; G89.4 Chronic pain syndrome; E78.5 Hyperlipidemia, unspecified; I10 Essential (primary) hypertension; G93.89 Other specified disorders of brain; I65.22 Occlusion and stenosis of left carotid artery; R13.10 Dysphagia, unspecified; M54.50 Low back pain, unspecified; Z74.09 Other reduced mobility; Z79.899 Other long term (current) drug therapy; Z79.82 Long term (current) use of aspirin; F17.200 Nicotine dependence, unspecified, uncomplicated; Z91.148 Patient's other noncompliance with medication regimen for other reason; I72.0 Aneurysm of carotid artery; Z66 Do not resuscitate; R11.2 Nausea with vomiting, unspecified
CPT/HCPCS: A9270; J0360; J1650; J2405; Q9967